=== PATIENT | male | born 1955 | race Two or more races ===

== ENCOUNTER 2020-12-05 09:08 | Inpatient (IN) | payer OTHER ==
[~2020-12-05] VITALS: Ht 165.1 cm; Wt 88.9 kg
[~2020-12-05 09:08] MED LIST changes: -GLIPIZIDE10 MG; -JANUVIA100 MG; -METFORMIN HCL1000 M3; -RAMIPRIL2.5 MG; -ROSUVASTATIN CA40 MG
[2020-12-06] MEDS ORDERED: JANUVIA100 MG (08:07)
[2020-12-06] MEDS ORDERED: GLIPIZIDE10 MG (08:07)
[2020-12-06] MEDS ORDERED: RAMIPRIL2.5 MG (08:07)
[2020-12-06] MEDS ORDERED: ROSUVASTATIN CA40 MG (08:07)
[2020-12-06] MEDS ORDERED: METFORMIN HCL1000 M3 (08:07)
== END 2020-12-08 18:26 | disposition home or self-care (01) | DRG 331 ==
LOC: SURG 12-06 05:27 → O/R 12-06 05:27 → SURH 12-06 10:22 → SURG 12-06 16:51 → SURH 12-06 18:00 → SURG 12-08 18:26
PROVIDERS: ADMIT Colon & Rectal Surgery; ATTEND Colon & Rectal Surgery
PROC: 0DBN4ZZ Excision of Sigmoid Colon, Percutaneous Endoscopic Approach (ICD-10-PCS; 2020-12-06)
PROC: 07BC4ZX Excision of Pelvis Lymphatic, Percutaneous Endoscopic Approach, Diagnostic (ICD-10-PCS; 2020-12-06)
PROC: 0DJD8ZZ Inspection of Lower Intestinal Tract, Via Natural or Artificial Opening Endoscopic (ICD-10-PCS; 2020-12-06)
PROC: 0DBP4ZZ Excision of Rectum, Percutaneous Endoscopic Approach (ICD-10-PCS; principal; 2020-12-06 18:00)
DX: C19 Malignant neoplasm of rectosigmoid junction (principal)

== ENCOUNTER → 2020-12-05 | Day surgery (SDC) | payer OTHER ==
[~2020-12-05] MED LIST: ALTACE5 MG PO; FORTAMET500 MG PO; GLIPIZIDE10 MG; JANUV PO; JANUVIA100 MG; METFORMIN HCL1000 M3; RAMIPRIL2.5 MG; ROSUVAST PO; ROSUVASTATIN CA40 MG
== END | disposition home or self-care (01) ==
LOC: ADM 11-28 14:15 → AMB-ENDOS 11:40
PROVIDERS: ATTEND Colon & Rectal Surgery
DX: C19 Malignant neoplasm of rectosigmoid junction (principal); K64.1 Second degree hemorrhoids; Z20.822 Contact with and (suspected) exposure to COVID-19

== ENCOUNTER 2021-02-07 05:15 | Day surgery (SDC) | payer OTHER ==
[~2021-02-07 05:15] MED LIST changes: +GLIPIZIDE10 MG; +JANUVIA100 MG; +METFORMIN HCL1000 M3; +RAMIPRIL2.5 MG; +ROSUVASTATIN CA40 MG
== END 2021-02-07 11:00 | disposition home or self-care (01) ==
LOC: CIR.AMB 05:15 → LAB 09:45 → CIR.AMB 11:00
PROVIDERS: ATTEND Colon & Rectal Surgery
DX: C19 Malignant neoplasm of rectosigmoid junction (principal); Z20.822 Contact with and (suspected) exposure to COVID-19
CPT/HCPCS: 36561; C1751